=== PATIENT | male | born 1950 | race Caucasian/White ===

== ENCOUNTER 2020-10-09 13:28 | Emergency (ER) | payer MEDICARE, MEDICAID ==
[~2020-10-09] VITALS: Ht 188 cm; Wt 88.6 kg
[~2020-10-09 13:28] MED LIST: ARTANE2 MG; FERREX 28 TABL1 EACH; FUROSEMIDE20 MG; GLUCOPHAGE1000 MG; LASIX20 MG; LIPITOR10 MG; MIRALAX17 GM; MIRALAX17 GM PO; PRINIVIL10 MG; RELAFEN500 MG; ZYPREXA10 MG
[2020-10-09 13:47] VITALS: BP 161/75; Ht 188 cm; Wt 88.6 kg
[2020-10-09] MEDS ORDERED: LOPRESSOR25 MG (13:51)
[2020-10-09] MEDS ORDERED: NIFEREX-150 CAP1 CA3 (13:54)
[2020-10-09 14:20] LABS: HEMATOCRIT 38.9 % (42.0-54.0); HEMOGLOBIN 12.9 g/dL (13.5-17.5); LYMPHOCYTES 19.4 % (15-50); MCH 30.7 pg (26.0-34.0); MCHC 33.2 g/dL (31.0-37.0); MCV 92.6 fL (80.0-100.0); MEAN PLATELET VOLUME 9.7 fL (7.4-10.4); NEUTROPHILS 71.1 % (40-80); RDW 12.2 % (11.5-14.5); WBC 9.2 10x3/uL (4.8-10.8)
[2020-10-09 14:28] LABS: BILIRUBIN NEGATIVE (NEGATIVE); KETONE NEGATIVE (NEGATIVE); NITRITE NEGATIVE (NEGATIVE); UROBILINOGEN NORMAL mg/dL (< 2)
[2020-10-09 14:29] LABS: BACTERIA FEW HPF (NONE SEEN); SQUAMOUS EPITHELIAL RARE HPF (0-4); WHITE CELLS - URINE OCC HPF (0-1)
[2020-10-09 14:29] LABS: PLATELET COUNT 273 10x3/uL (130-400)
[2020-10-09 14:32] LABS: ANION GAP 13.7 mmol/L (8-16); CARBON DIOXIDE 27.6 mmol/L (21.0-32.0); CREATININE - SERUM 1.9 mg/dL (0.6-1.3); POTASSIUM - SERUM 4.3 mmol/L (3.5-5.1)
[2020-10-09 14:38] LABS: ALBUMIN 3.8 g/dL (3.4-5.0); BILIRUBIN - TOTAL 0.57 mg/dL (0.2-1.3); PROTEIN - SERUM 7.7 g/dL (6.4-8.2)
== END 2020-10-09 15:47 | disposition home or self-care (01) ==
LOC: D.ER 13:28
PROVIDERS: Emergency Medicine
DX: K59.01 Slow transit constipation (principal); N18.9 Chronic kidney disease, unspecified; E11.22 Type 2 diabetes mellitus with diabetic chronic kidney disease; I12.9 Hypertensive chronic kidney disease with stage 1 through stage 4 chronic kidney disease, or unspecified chronic kidney disease; Z79.84 Long term (current) use of oral hypoglycemic drugs